=== PATIENT | female | born 1975 | race Caucasian/White ===

== ENCOUNTER 2016-12-26 18:18 | Emergency (ER) | payer OTHER ==
[~2016-12-26 18:18] MED LIST: BACTRIM DS TAB1 EACH PO; COLACE100 MG PO; GLIPIZIDE5 MG PO; INVOKANA PO; JANUVIA100 MG PO; PERCOCET 5/3251 TAB PO; VIBRAMYCIN100 MG PO; VITAMIN D350000 UNIT PO; ZESTRIL5 MG PO
== END 2016-12-26 20:09 | disposition home or self-care (01) ==
LOC: FER 18:18
DX: S00.93XA Contusion of unspecified part of head, initial encounter (principal); E11.9 Type 2 diabetes mellitus without complications; Z79.84 Long term (current) use of oral hypoglycemic drugs; W01.198A Fall on same level from slipping, tripping and stumbling with subsequent striking against other object, initial encounter; Y92.009 Unspecified place in unspecified non-institutional (private) residence as the place of occurrence of the external cause
CPT/HCPCS: 70450

== ENCOUNTER → 2020-10-25 | Day surgery (SDC) | payer OTHER ==
[~2020-10-25] MED LIST changes: +ACETAMINOPHEN500 M1 PO; +ALLEGRA ALLERG180 MG PO; +BYDUREON P2 MG/0.65 SC; +INVOKANA300 MG PO; +MOTRIN600 MG PO; +OXY-IR 5MG5 MG PO; +OZEMPIC0.25 MG/0. SC; +PRINIVIL10 MG PO; -VITAMIN D350000 UNIT PO; +Vitamin D3 PO; -ZESTRIL5 MG PO
[2020-10-25 07:23] LABS: BILIRUBIN - TOTAL 0.4 mg/dL (0.2-1.0); CREATININE 0.4 mg/dL (0.51-0.95); GLOBULIN (CALCULATION) 3.6 g/dL; POTASSIUM 3.9 mmol/L (3.5-5.1); TOTAL PROTEIN 7.6 g/dL (6.4-8.2)
== END | disposition home or self-care (01) ==
LOC: FAS 06:25
PROVIDERS: Student in an Organized Health Care Education/Training Program
DX: K81.1 Chronic cholecystitis (principal); K82.8 Other specified diseases of gallbladder; N73.6 Female pelvic peritoneal adhesions (postinfective); E11.9 Type 2 diabetes mellitus without complications; J30.9 Allergic rhinitis, unspecified; I10 Essential (primary) hypertension; E78.5 Hyperlipidemia, unspecified; E66.9 Obesity, unspecified; Z68.34 Body mass index [BMI] 34.0-34.9, adult; Z86.16 Personal history of COVID-19; Z88.8 Allergy status to other drugs, medicaments and biological substances
CPT/HCPCS: 36415; 80053; 82150; 83690; 93005; J1644; J1885; J2250; J2405; J2704; J2710; J3010; J7120; Q9967

== ENCOUNTER → 2020-11-04 | Day surgery (SDC) | payer OTHER ==
[2020-11-04 09:08] LABS: BASOPHIL 0.8 % (0-2); EOSINOPHIL 2.5 % (0-5); HCT 37.9 % (37.0-47.0); HGB 13.2 g/dl (12.5-16.0); LYMPHOCYTE 23.5 % (15-48); MCH 31.9 pg (25.0-31.0); MCHC 34.8 g/dL (32.0-36.0); MCV 91.5 fL (78.0-100.0); MONOCYTE 4.6 % (0-12); MPV 10.5 fL (6.0-9.5); NEUTROPHIL 67.3 % (41-80); NRBC 0; PLT 236 K/uL (150-400); RBC 4.14 M/uL (4.20-5.40); RDW 13.1 % (11.5-14.0); WBC 7.9 K/uL (4.0-10.5)
[2020-11-04 09:27] LABS: ALBUMIN 3.9 g/dL (3.4-5.0); BILIRUBIN - TOTAL 0.3 mg/dL (0.2-1.0); BUN/CREAT RATIO (CALC) 37.2 RATIO; CREATININE 0.43 mg/dL (0.51-0.95); GLOBULIN (CALCULATION) 3.2 g/dL; POTASSIUM 4.1 mmol/L (3.5-5.1); TOTAL PROTEIN 7.1 g/dL (6.4-8.2)
== END | disposition home or self-care (01) ==
LOC: FAS 08:12
PROVIDERS: Oral & Maxillofacial Surgery
DX: K02.9 Dental caries, unspecified (principal); I10 Essential (primary) hypertension; E11.9 Type 2 diabetes mellitus without complications; Z88.8 Allergy status to other drugs, medicaments and biological substances
CPT/HCPCS: 36415; 80053; 85025; J1885; J2250; J2405; J3010; J7120

== ENCOUNTER 2021-03-09 14:48 | Emergency (ER) | payer OTHER ==
[2021-03-09 17:32] LABS: BASOPHIL 0.3 % (0-2); EOSINOPHIL 1.2 % (0-5); HCT 40.7 % (37.0-47.0); HGB 13.9 g/dl (12.5-16.0); LYMPHOCYTE 29.1 % (15-48); MCH 31.5 pg (25.0-31.0); MCHC 34.2 g/dL (32.0-36.0); MCV 92.3 fL (78.0-100.0); MONOCYTE 5.1 % (0-12); MPV 10.9 fL (6.0-9.5); NEUTROPHIL 63.8 % (41-80); NRBC 0; PLT 232 K/uL (150-400); RBC 4.41 M/uL (4.20-5.40); RDW 12.7 % (11.5-14.0); WBC 9.5 K/uL (4.0-10.5)
[2021-03-09 17:44] LABS: ALBUMIN 4.1 g/dL (3.4-5.0); BILIRUBIN - TOTAL 0.4 mg/dL (0.2-1.0); BUN/CREAT RATIO (CALC) 19.2 RATIO; CREATININE 0.52 mg/dL (0.51-0.95); GLOBULIN (CALCULATION) 3.1 g/dL; POTASSIUM 3.8 mmol/L (3.5-5.1); TOTAL PROTEIN 7.2 g/dL (6.4-8.2)
[2021-03-09 17:45] LABS: BILIRUBIN NEGATIVE (NEGATIVE); BLOOD TRACE-INTACT Ery/uL (NEGATIVE); CLARITY CLEAR (CLEAR); COLOR YELLOW (YELLOW); GLUCOSE (U) 3+ mg/dL (NORMAL); LEUKOCYTES NEGATIVE Leu/uL (NEGATIVE); NITRITE POSITIVE (NEGATIVE); PROTEIN NEGATIVE (NEGATIVE); UROBILINOGEN 0.2 mg/dL (0.2-1.0)
[2021-03-09 18:01] LABS: BACTERIA 1+
[2021-03-09] MEDS ORDERED: AUGMENTIN 875-1 EACH PO (18:26)
[2021-03-09] MEDS ORDERED: BENTYL10 MG PO (18:26)
== END 2021-03-09 18:55 | disposition home or self-care (01) ==
LOC: FER 14:48
PROVIDERS: Emergency Medicine
DX: N30.00 Acute cystitis without hematuria (principal); E11.9 Type 2 diabetes mellitus without complications; Z90.49 Acquired absence of other specified parts of digestive tract; Z90.710 Acquired absence of both cervix and uterus
CPT/HCPCS: 36415; 80053; 81001; 83690; 85025